=== PATIENT | female | born 1990 | race Caucasian/White ===

== ENCOUNTER 2018-06-09 05:49 | Inpatient (IN) | payer OTHER ==
[~2018-06-09] VITALS: Ht 162.6 cm; Wt 88.1 kg
[2018-06-09] MEDS ORDERED: LACTATED RINGERS 1,000 ML IV SCH (06:00)
[2018-06-09] MEDS ORDERED: METOCLOPRAMIDE 5 MG/ML, 2ML IV ONE (06:00)
[2018-06-09] MEDS ORDERED: LACTATED RINGERS 1,000 ML IVBOLUS ONE (06:00)
[2018-06-09] MEDS ORDERED: SODIUM CITRATE/CITRIC ACID 30 ML UDC PO ONE (06:00)
[2018-06-09] MEDS ORDERED: MISOPROSTOL 200 MCG TABLET ONE (06:17)
[2018-06-09] MEDS ORDERED: SODIUM CITRATE/CITRIC ACID 15 ML UDC ONE (06:17)
[2018-06-09] MEDS ORDERED: METOCLOPRAMIDE 5 MG/ML, 2ML ONE (06:17)
[2018-06-09] MEDS ORDERED: OXYTOCIN 30U/ 0.9% NaCL 500ML 500 ML ONE (06:19)
[2018-06-09 06:23] VITALS: BP 125/76
[2018-06-09] MEDS ORDERED: FENTANYL/BUPIV./NS/PF 250 ML EPIDCONT SCH (06:50)
[2018-06-09 06:56] LABS: BASOPHILS # (AUTO) 0.02 x10^3/uL (0-0.1); BASOPHILS % (AUTO) 0 % (0-1); EOSINOPHILS # (AUTO) 0.02 x10^3/uL (0-0.4); EOSINOPHILS % (AUTO) 0 % (1-7); LYMPHOCYTES # (AUTO) 1.73 x10^3/uL (1-3.4); LYMPHOCYTES % (AUTO) 19 % (22-44); MD NO; MEAN CORPUSCULAR HEMOGLOBIN 26.3 pg (27.0-34.8); MEAN CORPUSCULAR HGB CONC 32.8 g/dL (32.4-35.8); MEAN CORPUSCULAR VOLUME 80.2 fL (80-100); MEAN PLATELET VOLUME 8.3 fL (7.4-10.4); MONOCYTES % (AUTO) 8 % (2-9); NEUTROPHILS # (AUTO) 6.77 x10^3/uL (1.8-6.8); NEUTROPHILS % (AUTO) 73 % (42-75); PLATELET COUNT 246 x10^3/uL (130-400); RED BLOOD COUNT 3.37 x10^6/uL (3.82-5.3); RED CELL DISTRIBUTION WIDTH 15.9 % (9.6-15.2)
[2018-06-09] MEDS ORDERED: LACTATED RINGERS 1,000 ML IVBOLUS PRN (07:00)
[2018-06-09] MEDS ORDERED: CEFAZOLIN 1,000 MG ONE (08:10)
[2018-06-09] MEDS ORDERED: EPHEDRINE 50 MG/ML, 1ML ONE (08:10)
[2018-06-09] MEDS ORDERED: OXYTOCIN 10 UNITS/ML, 1ML ONE (08:10)
[2018-06-09] MEDS ORDERED: EPINEPHRINE 1 MG/ML, 1ML ONE (08:10)
[2018-06-09] MEDS ORDERED: ONDANSETRON 2MG/ML, 2ML ONE (08:25)
[2018-06-09] MEDS: LACTATED RINGERS 1,000 ML IV SCH ×5 (08:53→22:30)
[2018-06-09] MEDS ORDERED: KETOROLAC 30 MG/1 ML ONE (08:57)
[2018-06-09] MEDS: KETOROLAC 30 MG/1 ML IV PRN ×3 (08:59→22:11)
[2018-06-09] MEDS ORDERED: CALCIUM CARBONATE 500 MG TAB.CHEW PO PRN (09:00)
[2018-06-09] MEDS ORDERED: RHOGAM FROM BLOOD BANK 1 NOTE EA IM/IV ONE (09:00)
[2018-06-09] MEDS ORDERED: morphine SULFATE 10 MG/ML, 1ML IVPush PRN (09:00)
[2018-06-09] MEDS ORDERED: MEASLES,MUMPS&RUBELLA VACC/PF 0.5 ML SQ-VACC PRN (09:00)
[2018-06-09] MEDS ORDERED: METOCLOPRAMIDE 5 MG/ML, 2ML IV PRN (09:00)
[2018-06-09] MEDS ORDERED: MISOPROSTOL 200 MCG TABLET PR PRN (09:00)
[2018-06-09] MEDS ORDERED: ACETAMINOPHEN 325 MG TABLET PO PRN ×2 (09:00)
[2018-06-09] MEDS ORDERED: ONDANSETRON 2MG/ML, 2ML IV PRN (09:00)
[2018-06-09] MEDS: PRENATAL VIT/IRON/FA 1 EACH TABLET PO SCH (09:00)
[2018-06-09] MEDS ORDERED: morphine SULFATE 10 MG/ML, 1ML ONE (09:03)
[2018-06-09] MEDS: morphine SULFATE 10 MG/ML, 1ML IVPush PRN ×3 (09:10→09:23)
[2018-06-09] MEDS: OXYTOCIN 30U/ 0.9% NaCL 500ML 500 ML IV SCH ×2 (09:31→18:53)
[2018-06-09 11:30] VITALS: BP 122/72
[2018-06-09 14:00] VITALS: BP 109/70
[2018-06-09] MEDS: OXYcodone/APAP 5/325MG TABLET PO PRN ×2 (14:13→20:57)
[2018-06-09] MEDS: DOCUSATE 100 MG CAPSULE PO PRN (14:13)
[2018-06-09] MEDS: FERROUS SULFATE 325 MG TABLET PO SCH (16:19)
[2018-06-09 16:37] VITALS: BP 102/66
[2018-06-09 19:43] LABS: MEAN CORPUSCULAR HEMOGLOBIN 26.6 pg (27.0-34.8); MEAN CORPUSCULAR HGB CONC 33.3 g/dL (32.4-35.8); MEAN CORPUSCULAR VOLUME 79.9 fL (80-100); MEAN PLATELET VOLUME 7.9 fL (7.4-10.4); PLATELET COUNT 234 x10^3/uL (130-400); RED BLOOD COUNT 3.19 x10^6/uL (3.82-5.3); RED CELL DISTRIBUTION WIDTH 15.9 % (9.6-15.2)
[2018-06-09 20:00] LABS: BASOPHILS # (AUTO) 0.04 x10^3/uL (0-0.1); BASOPHILS % (AUTO) 0 % (0-1); EOSINOPHILS # (AUTO) 0.14 x10^3/uL (0-0.4); EOSINOPHILS % (AUTO) 1 % (1-7); LYMPHOCYTES % (AUTO) 10 % (22-44); MD SCAN; MONOCYTES # (AUTO) 0.75 x10^3/uL (0.2-0.8); MONOCYTES % (AUTO) 6 % (2-9); NEUTROPHILS % (AUTO) 82 % (42-75)
[2018-06-09 20:45] VITALS: BP 100/65
[2018-06-09] MEDS: SIMETHICONE 80 MG CHEW TAB PO PRN (22:11)
[2018-06-10 00:24] VITALS: BP 96/59
[2018-06-10] MEDS: LACTATED RINGERS 1,000 ML IV SCH ×4 (01:03→16:53)
[2018-06-10] MEDS: OXYTOCIN 30U/ 0.9% NaCL 500ML 500 ML IV SCH ×2 (01:04→14:53)
[2018-06-10] MEDS: OXYcodone/APAP 5/325MG TABLET PO PRN ×5 (02:13→20:10)
[2018-06-10] MEDS: SIMETHICONE 80 MG CHEW TAB PO PRN ×4 (04:07→22:18)
[2018-06-10] MEDS: KETOROLAC 30 MG/1 ML IV PRN (04:07)
[2018-06-10 04:14] VITALS: BP 101/66
[2018-06-10 08:15] VITALS: BP 100/65
[2018-06-10] MEDS: DOCUSATE 100 MG CAPSULE PO PRN ×2 (08:16→22:18)
[2018-06-10] MEDS: FERROUS SULFATE 325 MG TABLET PO SCH ×2 (08:16→16:13)
[2018-06-10] MEDS: PRENATAL VIT/IRON/FA 1 EACH TABLET PO SCH (09:00)
[2018-06-10] MEDS: IBUPROFEN 600 MG TABLET PO PRN ×3 (10:09→22:18)
[2018-06-10 19:00] VITALS: BP 111/66
[2018-06-11] MEDS: OXYcodone/APAP 5/325MG TABLET PO PRN ×4 (00:01→12:02)
[2018-06-11] MEDS: OXYTOCIN 30U/ 0.9% NaCL 500ML 500 ML IV SCH (00:53)
[2018-06-11] MEDS: LACTATED RINGERS 1,000 ML IV SCH ×2 (00:53)
[2018-06-11] MEDS: SIMETHICONE 80 MG CHEW TAB PO PRN ×3 (04:32→12:02)
[2018-06-11] MEDS: IBUPROFEN 600 MG TABLET PO PRN ×2 (04:32→10:59)
[2018-06-11 07:50] VITALS: BP 107/67
[2018-06-11] MEDS: DOCUSATE 100 MG CAPSULE PO PRN (08:06)
[2018-06-11] MEDS: FERROUS SULFATE 325 MG TABLET PO SCH (08:07)
[2018-06-11] MEDS: PRENATAL VIT/IRON/FA 1 EACH TABLET PO SCH (09:00)
[2018-06-11] MEDS ORDERED: IBUP-1222 PO (10:28)
[2018-06-11] MEDS ORDERED: OXYC-302 PO (10:29)
[2018-06-11] MEDS ORDERED: FERR325T18 PO (10:31)
[2018-06-11] MEDS ORDERED: FERR325T5 PO (10:33)
== END 2018-06-11 14:27 | disposition home or self-care (01) | DRG 798 ==
LOC: LDIP 05:49 → 2NW 11:24
PROVIDERS: ADMIT Obstetrics & Gynecology; ATTEND Obstetrics & Gynecology
PROC: 10E0XZZ Delivery of Products of Conception, External Approach (ICD-10-PCS; principal; 2018-06-09)
PROC: 0UB70ZZ Excision of Bilateral Fallopian Tubes, Open Approach (ICD-10-PCS; 2018-06-09)
DX: O99.02 Anemia complicating childbirth (principal); Z37.0 Single live birth; O34.211 Maternal care for low transverse scar from previous cesarean delivery; D50.9 Iron deficiency anemia, unspecified; Z3A.39 39 weeks gestation of pregnancy; Z80.0 Family history of malignant neoplasm of digestive organs; Z82.79 Family history of other congenital malformations, deformations and chromosomal abnormalities; Z88.8 Allergy status to other drugs, medicaments and biological substances
CPT/HCPCS: 36415; 85025; 86850; 86900; 88302; G0378; J0171; J0690; J1885; J2405; J2270; J2590; J2765; J7120